=== PATIENT | male | born 1950 | race Asian ===

== ENCOUNTER 2019-11-24 16:59 | Emergency (ER) | payer MEDICARE ==
[~2019-11-24] VITALS: Ht 167.6 cm; Wt 90.0 kg
[~2019-11-24 16:59] MED LIST: BUPR100 PO; ESCI10TA PO; GLIP5 PO; LISI-660 PO; METF-446 PO; NIAC500T7 PO; SIMV-259 PO; VITAD5000 PO
[2019-11-24] MEDS ORDERED: TAMS-13 PO (17:06)
[2019-11-24] MEDS ORDERED: ATOR10TA84 PO (17:06)
[2019-11-24 19:11] LABS: EOSINOPHILS % (AUTO) 3.5 % (1.0-6.0); HEMOGLOBIN 14.8 g/dL (13.5-17.5); LYMPHOCYTES # (AUTO) 2.5 K/uL (1.0-4.8); LYMPHOCYTES % (AUTO) 30.9 % (22.0-44.0); MEAN CORPUSCULAR HEMOGLOBIN 27.4 pg (26.0-34.0); MEAN CORPUSCULAR HGB CONC 32.3 G/dL (31.0-37.0); MEAN CORPUSCULAR VOLUME 85 fL (80-100); MONOCYTES # (AUTO) 0.6 K/uL (0.1-1.0); NEUTROPHILS # (AUTO) 4.6 K/uL (1.8-7.7); NEUTROPHILS % (AUTO) 56.6 % (40.0-70.0); PLATELET COUNT (AUTO) 207 K/uL (150-450); RED BLOOD CELL COUNT(AUTO) 5.41 MIL/uL (4.50-5.90); RED CELL DISTRIBUTION WIDTH 13.8 % (11.5-14.5)
[2019-11-24 19:15] LABS: APPEARANCE,URINE TURBID (CLEAR); GLUCOSE, URINE (UA) 250 mg/dL (NEGATIVE); KETONES,URINE >=80 mg/dL (NEGATIVE); LEUKOCYTE ESTERASE ,URINE LARGE (NEGATIVE); NITRATE,URINE POSITIVE (NEGATIVE); OCCULT BLOOD,URINE LARGE (NEGATIVE); PROTEIN,URINE SEE CONFIRM (NEGATIVE); UROBILINOGEN,URINE >=8.0 mg/dL (<=1.0)
[2019-11-24 19:19] LABS: BILIRUBIN,URINE PRELIM. POSITIVE (NEGATIVE)
[2019-11-24 19:21] LABS: CALCIUM, TOTAL 9.4 mg/dL (8.8-10.5); CREATININE 1.22 mg/dL (0.60-1.30); POTASSIUM 5.3 mmol/L (3.5-5.1)
[2019-11-24 19:24] LABS: SULFOSALICYLIC ACID,URINE 4+ (Negative)
[2019-11-24 19:25] LABS: INR 1.1 (0.9-1.1); PROTHROMBIN TIME 10.8 SEC (9.4-11.6)
[2019-11-24 19:26] LABS: RBC,URINE Full Field /HPF (0-2)
[2019-11-24 19:29] LABS: ALBUMIN 4.3 g/dL (3.4-5.0); BILIRUBIN,TOTAL 0.3 mg/dL (0.1-1.0); TOTAL PROTEIN, SERUM 7.3 g/dL (6.4-8.2)
[2019-11-24 19:29] LABS: BACTERIA,URINE Few /HPF (None Seen); SQUAMOUS EPITHELIAL CELL,UR Moderate /LPF (None Seen)
[2019-11-24] MEDS ORDERED: IBUPROFEN 600 MG TABLET PO ONE (19:45)
[2019-11-24] MEDS ORDERED: LIDOCAINE/PF 1% 2 ML VIAL IM ONE (19:45)
[2019-11-24] MEDS ORDERED: CefTRIAXone SODIUM 1 GM/VIAL IM ONE (19:45)
[2019-11-24 20:54] VITALS: BP 123/77
== END 2019-11-24 20:57 | disposition home or self-care (01) ==
LOC: EMS 17:02
DX: N30.91 Cystitis, unspecified with hematuria (principal); R31.0 Gross hematuria; E11.9 Type 2 diabetes mellitus without complications; E78.00 Pure hypercholesterolemia, unspecified; I10 Essential (primary) hypertension; Z79.899 Other long term (current) drug therapy; Z79.84 Long term (current) use of oral hypoglycemic drugs
CPT/HCPCS: 36415; 74176; 80053; 81001; 85025; 85610; 85730; 87086; 96372; 99284; J0696; J3490